=== PATIENT | female | born 1985 | race Caucasian/White ===

== ENCOUNTER → 2017-06-25 | Outpatient (CLI) | payer BC ==
[~2017-06-25] MED LIST: MTR600X PO; OXYC-57 PO; PRENTAB26 PO
--- NOTE | 2017-06-25 11:53 | DIAGNOSTIC IMAGING REPORT ---
PELVIC COMPLETE NON OB, TRANSVAG-FEMALE PELVIS CLINICAL HISTORY: 32 years-old Female presenting with URINARY INCONTINENCE AND FREQUENCY FOR 3 MONTHS, history of dilatation and curettage for miscarriage, no pelvic pain, last menstrual period 06/11/2017. TECHNIQUE: Real-time grayscale and color and spectral Doppler ultrasound imaging of the pelvis was performed first using a transabdominal probe and subsequently transvaginal for better characterization. COMPARISON: None. FINDINGS: Uterus: Small hyperechoic focus along the anterior uterine wall measuring 2 mm, possible calcification. Retroverted. The uterus measures 6.4 x 3.2 x 4.5 cm. Endometrial stripe measures 3 mm in thickness. Endometrium normal-appearing. Cervix normal. Right adnexa: Right ovary normal. Right ovary measures 4.8 x 1.9 x 2.2 cm. Normal color Doppler flow and arterial and venous waveforms within the ovarian parenchyma. Left adnexa: Left ovary contains several follicles. Left ovary measures 2.8 x 1.8 x 3.1 cm. Normal color Doppler flow and arterial and venous waveforms within the ovarian parenchyma. Other: No free fluid. IMPRESSION: No significant abnormality identified within the pelvis. Electronically signed by: Parker Ornelas M.D. 06/25/2017 11:52 AM Dictated Date/Time: 06/25/2017 11:48 AM
== END | disposition home or self-care (01) ==
LOC: C.ULTR 08:21
PROVIDERS: ATTEND Family Medicine
DX: R35.0 Frequency of micturition (principal); N39.498 Other specified urinary incontinence; N30.00 Acute cystitis without hematuria

== ENCOUNTER → 2018-02-24 | Outpatient (CLI) | payer BC ==
--- NOTE | 2018-02-24 17:33 | DIAGNOSTIC IMAGING REPORT ---
L VENOUS DOPP LOWER EXT UNILAT CLINICAL HISTORY: 32 years-old Female presenting with LEFT LEG PAIN AND SWELLING, R/O DVT. TECHNIQUE: Real-time grayscale and color and spectral Doppler ultrasound imaging of the veins of the left lower extremity was performed. Compression and augmentation were also utilized. COMPARISON: None. FINDINGS: Left: Common femoral vein: Patent. Greater saphenous vein: Patent. Deep femoral vein: Patent. Femoral vein: Patent. Popliteal vein: Patent. Calf veins: Patent. Other: None. IMPRESSION: No evidence of deep venous thrombosis. Electronically signed by: Parker Ornelas M.D. 02/24/2018 5:31 PM Dictated Date/Time: 02/24/2018 5:31 PM
== END | disposition home or self-care (01) ==
LOC: C.ULTR 17:13
PROVIDERS: ATTEND Student in an Organized Health Care Education/Training Program
DX: M79.605 Pain in left leg (principal); M79.89 Other specified soft tissue disorders